=== PATIENT | male | born 1965 | race Caucasian/White ===

== ENCOUNTER 2021-01-01 23:37 | Emergency (ER) | payer OTHER ==
[~2021-01-01] VITALS: Ht 177.8 cm; Wt 106.0 kg
[2021-01-01] MEDS ORDERED: IV NORMAL SALINE 1000ML BAG 1,000 ML IV SCH (23:45)
--- NOTE | 2021-01-01 23:50 | EKG ---
[facility] [address] [place] [address] Test Date: 2021-01-01 Test Time: 23:47:08 Pat Name: KAT BAUER Department: Room: Gender: Auto Body Worker: : 1965 Requested By: FLORINA GUERRERO Order Number: [id number] Reading MD: Measurements Intervals [place] Rate: 84 P: 52 OR: 176 QRS: 42 QRSD: 114 T: 24 QT: 388 QTc: 462 Interpretive Statements SINUS RHYTHM NORMAL ECG RI6.02 No previous ECG available for comparison
[2021-01-02 00:10] LABS: BASO # 0.1 x10^3/uL (0.0-0.2); BASO % 1 % (0-3); EOS # 0.1 x10^3/uL (0.0-0.7); EOS % 1 % (0-3); HEMATOCRIT 40.8 % (39.0-53.0); HEMOGLOBIN 13.8 g/dL (13.0-17.5); LYMPH % 15 % (24-48); MEAN CORPUSCULAR HEMOGLOBIN 31 pg (25-35); MEAN CORPUSCULAR HGB CONC 34 g/dL (31-37); MEAN CORPUSCULAR VOLUME 91 fL (79-100); MONO # 1.1 x10^3/uL (0.0-1.1); MONO % 8 % (0-9); NEUT # 10.2 x10^3/uL (1.8-7.7); NEUT % 76 % (31-73); PLATELET COUNT 268 x10^3/uL (140-400); RED BLOOD COUNT 4.47 x10^6/uL (4.30-5.70); RED CELL DISTRIBUTION WIDTH 13.8 % (11.5-14.5); WHITE BLOOD COUNT 13.4 x10^3/uL (4.0-11.0)
--- NOTE | 2021-01-02 00:23 | RAD ---
XR CHEST 1V History: Reason: soa / Spl. Instructions: / History: Comparison: None. Findings: Low lung volumes with linear bibasilar opacities. No pleural effusion. No pneumothorax. Postop change s lower cervical spine. Impression: 1. Low lung volumes with linear bibasilar opacities, likely atelectasis. Electronically signed by: Kevan Fisher DO (01/02/2021 12:21 AM) [facility]
[2021-01-02 00:25] LABS: CALCIUM 8.5 mg/dL (8.5-10.1); CREATININE 2.1 mg/dL (0.7-1.3); GFR 32.7; POTASSIUM 3.7 mmol/L (3.5-5.1)
--- NOTE | 2021-01-02 00:28 | PHYS DOC ---
General Adult EDM: Chief Complaint: WEAKNESS/GENERALIZED HPI: HPI: 55-year-old male past medical history of hypertension, [id number] diabetes, hyperlipidemia and GERD, presents the ED from [facility] with complaints of weakness, lightheadedness and dizziness in which facility reports patient was pale and diaphoretic and saturating 86% on room air, glucose was 250. In ED patient reports " I fell wrong, I cannot focus on anything." States symptoms lasted for approximately an hour and a half while lying flat in bed around 7:30 PM. No history of increased physical activity, assault, fall or head injury. Denies any intentional overdose. No suicidal or homicidal ideations. (FLORINA GUERRERO DO) Review of Systems: Review of Systems: Constitutional: Denies fever or chills. [] Eyes: Denies change in visual acuity. [] HENT: Denies nasal congestion or sore throat. [] Respiratory: Denies cough or shortness of breath. [] Cardiovascular: Denies chest pain or edema. [] GI: Denies abdominal pain, nausea, vomiting, bloody stools or diarrhea. [] : Denies dysuria or hematuria Musculoskeletal: Denies back pain or joint pain. [] Integument: Denies rash or diaphoresis Neurologic: Denies headache, neck pain, focal weakness or sensory changes. [] Endocrine: Denies polyuria or polydipsia. [] Lymphatic: Denies swollen glands. [] Psychiatric: Denies depression or anxiety. [] (FLORINA GUERRERO DO) Heart Score: C/O Chest Pain: No Risk Factors: Risk Factors: DM, Current or recent (<one month) smoker, HTN, HLP, family history of CAD, obesity. Risk Scores: Score 0 - 3: 2.5% MACE over next 6 weeks - Discharge Home Score 4 - 6: 20.3% MACE over next 6 weeks - Admit for Clinical Observation Score 7 - 10: 72.7% MACE over next 6 weeks - Early Invasive Strategies (FLORINA GUERRERO DO) C/O Chest Pain: N/A (JENNIFER RIVERA MD) Current Medications: Current Medications Medications (Trade) Dose Ordered Sig/Eileen Start Time Stop Time Status Last Admin Dose Admin Sodium Chloride 1,000 ml @ 1,000 mls/hr Q1H 01/01/21 23:45 01/02/21 00:44 UNV 01/01/21 23:45 1,000 MLS/HR ([facility]) Physical Exam: PE: Constitutional: Well developed, well nourished, no acute distress, non-toxic appearance. HENT: Normocephalic, atraumatic, no midline neck pain Eyes: PERRLA, EOMI, conjunctiva normal, no discharge. Neck: Normal range of motion, supple, Cardiovascular: S1/2 present, regular rhythm Lungs & Thorax: Speaking in full sentences, bilateral equal chest rise, no tachypnea or increased work of breathing, 96% on RA on ed arrival Abdomen: soft, no tenderness, Skin: Warm, dry, no erythema, no rash. [] Back: No tenderness, no CVA tenderness. [] Extremities: No tenderness, no cyanosis, no lower extremity edema Neurologic: Alert and oriented X 3, normal motor function, normal sensory function, no focal deficits noted. [] Psychologic: Affect normal, judgement normal, mood normal. [] ([facility]) Current Patient Data: Labs: Laboratory Tests Test 01/02/21 00:01 White Blood Count 13.4 x10^3/uL (4.0-11.0) H Red Blood Count 4.47 x10^6/uL (4.30-5.70) Hemoglobin 13.8 g/dL (13.0-17.5) Hematocrit 40.8 % (39.0-53.0) Mean Corpuscular Volume 91 fL (79-100) Mean Corpuscular Hemoglobin 31 pg (25-35) Mean Corpuscular Hemoglobin Concent 34 g/dL (31-37) Red Cell Distribution Width 13.8 % (11.5-14.5) Platelet Count 268 x10^3/uL (140-400) Neutrophils (%) (Auto) 76 % (31-73) H Lymphocytes (%) (Auto) 15 % (24-48) L Monocytes (%) (Auto) 8 % (0-9) Eosinophils (%) (Auto) 1 % (0-3) Basophils (%) (Auto) 1 % (0-3) Neutrophils # (Auto) 10.2 x10^3/uL (1.8-7.7) H Lymphocytes # (Auto) 2.0 x10^3/uL (1.0-4.8) Monocytes # (Auto) 1.1 x10^3/uL (0.0-1.1) Eosinophils # (Auto) 0.1 x10^3/uL (0.0-0.7) Basophils # (Auto) 0.1 x10^3/uL (0.0-0.2) Sodium Level 137 mmol/L (136-145) Potassium Level 3.7 mmol/L (3.5-5.1) Chloride Level 98 mmol/L (98-107) Carbon Dioxide Level 27 mmol/L (21-32) Anion Gap 12 (6-14) Blood Urea Nitrogen 27 mg/dL (8-26) H Creatinine 2.1 mg/dL (0.7-1.3) H Estimated GFR (Cockcroft-Gault) 32.7 BUN/Creatinine Ratio 13 (6-20) Glucose Level 297 mg/dL (70-99) H Calcium Level 8.5 mg/dL (8.5-10.1) Total Bilirubin Pending Aspartate Amino Transferase (AST) Pending Alanine Aminotransferase (ALT) Pending Alkaline Phosphatase Pending Creatine Kinase Pending Total Protein Pending Albumin Pending Albumin/Globulin Ratio Pending Laboratory Tests 01/02/21 00:01 Laboratory Tests 01/02/21 00:01 (FLORINA GUERRERO DO) EKG: EKG: Sinus rhythm 84 bpm, no axis deviation, QTC 462, T wave inversion lead III, no ST elevations or ST depressions (FLORINA GUERRERO DO) Radiology/Procedures: Radiology/Procedures: IMAGING REPORT Signed PATIENT: KAT BAUER ACCOUNT: [id number] : 1965 LOCATION: ER AGE: 55 SEX: M EXAM STATUS: REG ER ORD. PHYSICIAN: FLORINA GUERRERO DO REASON: soa PROCEDURE: PORTABLE CHEST 1V XR CHEST 1V History: Reason: soa / Spl. Instructions: / History: Comparison: None. Findings: Low lung volumes with linear bibasilar opacities. No pleural effusion. No pneumothorax. Postop changes lower cervical spine. Impression: 1. Low lung volumes with linear bibasilar opacities, likely atelectasis. Electronically signed by: Kevan Fisher DO (01/02/2021 12:21 AM) [facility]igh Brew CoffeeBRIAN DICTATED and SIGNED BY: KEVAN FISHER DO DATE: 01/02/21 [id number] IMAGING REPORT Signed PATIENT: KAT BAUER ACCOUNT: [id number] : 1965 LOCATION: ER AGE: 55 SEX: M EXAM STATUS: REG ER ORD. PHYSICIAN: FLORINA GUERRERO DO REASON: weakness PROCEDURE: CT HEAD AND CERVICAL SPINE WO CT HEAD AND C-SPINE WO History: Reason: weakness / Spl. Instructions: / History: Comparison: None. Technique: Noncontrast CT imaging was performed of the head and cervical spine. Coronal and sagittal reconstructions were performed. Exposure: One or more of the following individualized dose reduction techniques were utilized for this examination: 1. Automated exposure control 2. Adjustment of the mA and/or kV according to patient size 3. Use of iterative reconstruction technique. Findings: Head CT: No intracranial hemorrhage. No mass effect. No hydrocephalus. Mild foci of decreased attenuation within the hemispheric white matter, most often due to chronic microvascular ischemia. Imaged orbits are unremarkable. Mild mucosal thickening within the inferior maxillary sinuses. Mastoid air cells are clear. No acute calvarial fracture. Cervical spine CT: Postoperative changes anterior stabilization C4-C5 with bridging syndesmophytes surrounding the anterior aspect. Anterior stabilization and interbody fusion C5- C7. Straightening of the normal cervical lordosis. Grade 1 anterolisthesis C3 on C4. Normal vertebral body height. No fracture. Multilevel degenerative disc changes throughout the cervical spine. Facet ar thropathy most prominent left C3-C4. No high-grade canal stenosis. Multilevel neuroforaminal narrowing. Multifocal carious dentition with periodontal disease. Left thyroid nodule measures 2.1 x 1.8 cm. Impression: Head CT: 1. No acute intracranial abnormality. Cervical spine CT: 1. No acute fracture or subluxation of the cervical spine. 2. Extensive postoperative changes throughout the cervical spine. 3. Multilevel cervical spondylosis. 4. Left thyroid nodule. Recommend ultrasound to further evaluate. Electronically signed by: Kevan Fisher DO (01/02/2021 1:47 AM) [facility] DICTATED and SIGNED BY: KEVAN FISHER DO DATE: 01/02/21 [id number] (FLORINA GUERRERO DO) Radiology/Procedures: EXAMINATION: US BILATERAL LOWEREXTREMITY VENOUS DOPPLER (LOWER EXTREMITY VENOUS ULTRASOUND) CLINICAL HISTORY: Bilateral lower extremity edema, elevated d-dimer TECHNIQUE: Sonographic grayscale images obtained of the bilateral lower extremity deep venous systems with color flow Doppler, compression, and augmentation techniques as indicated. Images obtained and stored in a permanent archive. COMPARISON: None FINDINGS: RIGHT: No evidence of absent flow or incompressibility within the common femoral vein, femoral vein, or popliteal vein. Visualized calf veins appear patent on limited evaluation. LEFT: No evidence of absent flow or incompressibility within the common femoral vein, femoral vein, or popliteal vein. Visualized calf veins appear patent on limited evaluation. IMPRESSION: No evidence of bilateral lower extremity DVT. NM LUNG PERFUSION SCAN History:Reason: syncope, hypoxia, Comparison: Chest x-ray January 02, 2021 Findings: Perfusion examination was performed. Perfusion images were acquired after the patient was injected with 5.5 mCi of technetium 99m MAA. No perfusion defect is identified. Impression: 1. Low probability for pulmonary embolic disease. (JENNIFER RIVERA MD) Course & Med Decision Making: Course & Med Decision Making Pertinent Labs and Imaging studies reviewed. (See chart for details) Concern for near-syncope in the absence of any chest pain, dypspnea or neurologic deficits. Was given renal function, VQ scan and duplex lower extremity ultrasound are pending. Due to shift change patient was signed out to Dr. Rivera. (FLORINA GUERRERO DO) Course & Med Decision Making Elevated blood sugar and creatinine. Patient states he is being managed by physician depression for his diabetes. Is on insulin and has not had an increase recently. (JENNIFER RIVERA MD) Dragon Disclaimer: Dragon Disclaimer: This electronic medical record was generated, in whole or in part, using a voice recognition dictation system. (FLORINA GUERRERO DO) Departure Departure Impression: Primary Impression: Dehydration Additional Impression: Hyperglycemia due to diabetes mellitus Disposition: 01 DC HOME SELF CARE/HOMELESS Condition: STABLE Referrals: NO PCP (PCP) Patient Instructions: Hyperglycemia Additional Instructions: Follow-up with your primary healthcare provider for diabetes management FLORINA GUERRERO DO Jan 02, 2021 00:28 JENNIFER RIVERA MD Jan 02, 2021 07:33
[2021-01-02 00:31] LABS: ALBUMIN 3.2 g/dL (3.4-5.0); ALBUMIN/GLOBULIN RATIO 0.9 (1.0-1.7); TOTAL BILIRUBIN 0.1 mg/dL (0.2-1.0); TOTAL PROTEIN 6.6 g/dL (6.4-8.2)
[2021-01-02] MEDS ORDERED: IV NORMAL SALINE 1000ML BAG 1,000 ML IV ONE (01:00)
[2021-01-02 01:26] LABS: ACETAMIN < 2 mcg/ml (10-30); SALIC < 2.8 mg/dL (2.8-20.0)
--- NOTE | 2021-01-02 01:49 | RAD ---
CT HEAD AND C-SPINE WO History: Reason: weakness / Spl. Instructions: / History: Comparison: None. Technique: Noncontrast CT imaging was performed of the head and cervical spine. Coronal and sagittal reconstructions were performed. Exposure: One or more of the following individualized dose reduction techniques were utilized for thi s examination: 1. Automated exposure control 2. Adjustment of the mA and/or kV according to patient size 3. Use of iterative reconstruction technique. Findings: Head CT: No intracranial hemorrhage. No mass effect. No hydrocephalus. Mild foci of decreased attenuation within the hemispheric white matter, most often due to chronic coco rovascular ischemia. Imaged orbits are unremarkable. Mild mucosal thickening within the inferior maxillary sinuses. Mastoi d air cells are clear. No acute calvarial fracture. Cervical spine CT: Postoperative changes anterior stabilization C4-C5 with bridging syndesmophytes surrounding the anter ior aspect. Anterior stabilization and interbody fusion C5-C7. Straightening of the normal cervical l ordosis. Grade 1 anterolisthesis C3 on C4. Normal vertebral body height. No fracture. Multilevel degenerative disc changes throughout the cervical spine. Facet arthropathy most prominent left C3-C4. No high-grade canal stenosis. Multilevel neuroforaminal narrowing. Multifocal carious dentition with periodontal disease. Left thyroid nodule measures 2.1 x 1.8 cm. Impression: Head CT: 1. No acute intracranial abnormality. Cervical spine CT: 1. No acute fracture or subluxation of the cervical spine. 2. Extensive postoperative changes throughout the cervical spine. 3. Multilevel cervical spondylosis. 4. Left thyroid nodule. Recommend ultrasound to further evaluate. Electronically signed by: Kevan Fisher DO (01/02/2021 1:47 AM) [facility]
[2021-01-02 04:19] LABS: BILIRUBIN,URINE NEGATIVE (NEG); CLARITY,URINE CLEAR; COLOR,URINE YELLOW; NITRITE,URINE NEGATIVE (NEG); PH,URINE 5.5 (<5.0-8.0); PROTEIN,URINE NEGATIVE (NEG-TRACE); UROBILINOGEN,URINE 0.2 mg/dL (0.2 mg/dL)
[2021-01-02 04:27] LABS: BACTERIA,URINE 0 /HPF (0-FEW); BARBITURATES NEG (NEG); BENZODIAZEPINES NEG (NEG); CANNABINOIDS NEG (NEG); COCAINE NEG (NEG); HYALINE CASTS, URINE MODERATE /HPF; METHADONE NEG (NEG); OPIATES NEG (NEG); PHENCYCLIDINE NEG (NEG); RBC,URINE 0 /HPF (0-2)
[2021-01-02 04:32] LABS: AMPHETAMINE/METHAMPHETAMINE NEG (NEG)
--- NOTE | 2021-01-02 06:18 | RAD ---
NM LUNG PERFUSION SCAN History:Reason: syncope, hypoxia, Comparison: Chest x-ray January 02, 2021 Findings: Perfusion examination was performed. Perfusion images were acquired after the patient was i njected with 5.5 mCi of technetium 99m MAA. No perfusion defect is identified. Impression: 1. Low probability for pulmonary embolic disease. Electronically signed by: Kevan Fisher DO (01/02/2021 6:16 AM) [facility]
[2021-01-02 07:00] VITALS: BP 148/87
[2021-01-02] MEDS ORDERED: ACETAMINOPHEN 325 MG TABLET. PO ONE (07:00)
--- NOTE | 2021-01-02 07:16 | RAD ---
EXAMINATION: US BILATERAL LOWEREXTREMITY VENOUS DOPPLER (LOWER EXTREMITY VENOUS ULTRASOUND) CLINICAL HISTORY: Bilateral lower extremity edema, elevated d-dimer TECHNIQUE: Sonographic grayscale images obtained of the bilateral lower extremity deep venous systems with color flow Doppler, compression, and augmentation techniques as indicated. Images obtained and stored in a permanent archive. COMPARISON: None FINDINGS: RIGHT: No evidence of absent flow or incompressibility within the common femoral vein, femoral vein, or popl iteal vein. Visualized calf veins appear patent on limited evaluation. LEFT: No evidence of absent flow or incompressibility within the common femoral vein, femoral vein, or popl iteal vein. Visualized calf veins appear patent on limited evaluation. IMPRESSION: No evidence of bilateral lower extremity DVT. Electronically signed by: Gabriel Shirley DO (01/02/2021 7:14 AM) [id number]
== END 2021-01-02 07:50 | disposition home or self-care (01) ==
LOC: ER 23:37 → EEVIPCON 23:37 → ER 01-02 07:50
DX: E86.0 Dehydration (principal); E11.65 Type 2 diabetes mellitus with hyperglycemia; M54.2 Cervicalgia; R55 Syncope and collapse; K21.9 Gastro-esophageal reflux disease without esophagitis; I10 Essential (primary) hypertension
CPT/HCPCS: 36415; 70450; 71045; 72125; 78580; 80053; 80307; 80329; 81001; 82550; 83880; 84484; 85025; 85379; 93005; 93970; 96360; 96361; 99285; A9540; J7030; G0480